=== PATIENT | male | born 2000 | race Caucasian/White ===

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

== ENCOUNTER 2018-05-26 04:23 | Inpatient (IN) | payer MEDICAID ==
[~2018-05-26] VITALS: Ht 167.6 cm; Wt 54.7 kg
[2018-05-26 04:27] VITALS: Ht 167.6 cm; Wt 54.7 kg
[2018-05-26 05:25] LABS: CALCIUM 8.6 mg/dL (8.5-10.1); CARBON DIOXIDE 29.7 mmol/L (21-32); CHLORIDE SERUM 100 mmol/L (98-107); CREATININE SERUM 0.8 mg/dL (0.7-1.3); GFR1 > 60 mL/min; GLUCOSE SERUM 143 mg/dL (74-106); POTASSIUM SERUM 3.7 mmol/L (3.5-5.1); SODIUM SERUM 136 mmol/L (136-145)
[2018-05-26 05:29] LABS: BASOPHIL % 0.3 % (0-2); PLATELET COUNT 298 x10^3mcL (130-400); RED CELL DISTRIBUTION WIDTH 12.7 % (11.5-14.5)
[2018-05-26 05:30] LABS: ALKALINE PHOSPHATASE 87 U/L (46-116); ALT/SGPT 16 U/L (16-63); AST/SGOT 14 U/L (15-37); BILIRUBIN TOTAL 0.67 mg/dL (0.20-1.00); TOTAL PROTEIN, SERUM 7.8 g/dL (6.4-8.2)
[2018-05-26 05:34] LABS: ALBUMIN 3.1 g/dL (3.4-5.0)
[2018-05-26 05:58] LABS: UA SPECIFIC GRAVITY >=1.030 (1.005-1.035); microscopic required? YES; urine erythrocyte NEGATIVE (NEGATIVE)
[2018-05-26 08:09] LABS: AMPHETAMINE QUAL UR POSITIVE (See below)
[2018-05-26 08:09] LABS: MAGNESIUM 1.7 mg/dL (1.8-2.4); PHOSPHOROUS 3.1 mg/dL (2.5-4.9)
[2018-05-26 08:11] LABS: CHOLESTEROL/HDL RATIO 2.5
[2018-05-26 12:33] VITALS: BP 144/57
[2018-05-26 19:00] VITALS: BP 111/54
[2018-05-26 21:23] VITALS: BP 109/60
[2018-05-27 05:31] VITALS: BP 99/51
[2018-05-27 07:36] LABS: CALCIUM 8.2 mg/dL (8.5-10.1); CARBON DIOXIDE 28.7 mmol/L (21-32); CHLORIDE SERUM 104 mmol/L (98-107); CREATININE SERUM 0.9 mg/dL (0.7-1.3); GFR1 > 60 mL/min; GLUCOSE SERUM 114 mg/dL (74-106); MAGNESIUM 1.9 mg/dL (1.8-2.4); PHOSPHOROUS 2.7 mg/dL (2.5-4.9); SODIUM SERUM 138 mmol/L (136-145)
[2018-05-27 07:59] LABS: BASOPHIL % 0.3 % (0-2); PLATELET COUNT 277 x10^3mcL (130-400); RED CELL DISTRIBUTION WIDTH 12.7 % (11.5-14.5)
[2018-05-27 08:58] VITALS: BP 113/69
[2018-05-27 21:26] VITALS: BP 118/61
[2018-05-27 22:22] VITALS: BP 114/72
[2018-05-27 22:57] VITALS: BP 121/63
[2018-05-28 00:03] VITALS: BP 126/69
[2018-05-28 05:13] VITALS: BP 97/53
[2018-05-28 07:12] LABS: PLATELET COUNT 299 x10^3mcL (130-400); RED CELL DISTRIBUTION WIDTH 12.3 % (11.5-14.5)
[2018-05-28 07:14] LABS: CALCIUM 8.5 mg/dL (8.5-10.1); CARBON DIOXIDE 29.6 mmol/L (21-32); CHLORIDE SERUM 104 mmol/L (98-107); CREATININE SERUM 0.8 mg/dL (0.7-1.3); GFR1 > 60 mL/min; GLUCOSE SERUM 121 mg/dL (74-106); MAGNESIUM 2.1 mg/dL (1.8-2.4); PHOSPHOROUS 4.2 mg/dL (2.5-4.9); POTASSIUM SERUM 4.3 mmol/L (3.5-5.1); SODIUM SERUM 138 mmol/L (136-145)
[2018-05-28 08:58] LABS: BAND NEUTROPHIL 4 % (0-10); MONOCYTE 2 % (0-7); SEGMENTED NEUTROPHILS 91 % (37-75)
[2018-05-28 08:59] LABS: rbc morphology (normal/abnorm) NORMAL (NORMAL)
[2018-05-28 10:30] VITALS: BP 109/56
== END 2018-05-28 15:03 | disposition left against medical advice (07) | DRG 710 ==
LOC: ED 04:23 → DU 06:17 → MU 06:17
PROVIDERS: Emergency Medicine; Surgery; ADMIT Internal Medicine
PROC: 0J9C0ZZ Drainage of Pelvic Region Subcutaneous Tissue and Fascia, Open Approach (ICD-10-PCS; principal; 2018-05-26 07:30)
DX: A41.9 Sepsis, unspecified organism (principal); N17.0 Acute kidney failure with tubular necrosis; L02.211 Cutaneous abscess of abdominal wall; L03.314 Cellulitis of groin; E44.1 Mild protein-calorie malnutrition; Q76.1 Klippel-Feil syndrome; E83.42 Hypomagnesemia
CPT/HCPCS: 83880; J0295; J0690; J0696; J1170; J1885; J2001; J2060; J2405; J3010; J3370; J3490; J7030; Q0092; Q9967

== ENCOUNTER 2018-05-28 17:46 | Emergency (ER) | payer MEDICAID ==
[~2018-05-28] VITALS: Ht 167.6 cm; Wt 62.1 kg
[2018-05-28 18:10] VITALS: BP 132/72; Ht 167.6 cm; Wt 62.1 kg
== END 2018-05-28 19:57 | disposition left against medical advice (07) ==
LOC: ED 17:46
DX: Z53.21 Procedure and treatment not carried out due to patient leaving prior to being seen by health care provider (principal)

== ENCOUNTER 2018-06-01 02:30 | Emergency (ER) | payer MEDICAID ==
[~2018-06-01] VITALS: Ht 165.1 cm; Wt 59.9 kg
[2018-06-01 02:37] VITALS: BP 119/72; Ht 165.1 cm; Wt 59.9 kg
== END 2018-06-01 03:50 | disposition home or self-care (01) ==
LOC: ED 02:30
DX: T81.33XA Disruption of traumatic injury wound repair, initial encounter (principal); X58.XXXA Exposure to other specified factors, initial encounter; Y93.89 Activity, other specified; Y92.89 Other specified places as the place of occurrence of the external cause; Y99.8 Other external cause status

== ENCOUNTER 2018-06-06 11:05 | Emergency (ER) | payer MEDICAID ==
[~2018-06-06] VITALS: Ht 165.1 cm; Wt 59.9 kg
[2018-06-06 11:32] VITALS: BP 112/63
== END 2018-06-06 13:55 | disposition home or self-care (01) ==
LOC: ED 11:05
DX: L02.214 Cutaneous abscess of groin (principal); L73.9 Follicular disorder, unspecified

== ENCOUNTER 2018-06-20 09:46 | Emergency (ER) | payer MEDICAID ==
[~2018-06-20] VITALS: Ht 165.1 cm; Wt 58.1 kg
[2018-06-20 09:49] VITALS: Ht 165.1 cm; Wt 58.1 kg
[2018-06-20 11:02] VITALS: BP 125/71
== END 2018-06-20 11:02 | disposition home or self-care (01) ==
LOC: ED 09:46
DX: Z48.01 Encounter for change or removal of surgical wound dressing (principal); A56.8 Sexually transmitted chlamydial infection of other sites; Z98.890 Other specified postprocedural states
CPT/HCPCS: J0696

== ENCOUNTER 2018-08-27 17:56 | Emergency (ER) | payer OTHER ==
[~2018-08-27] VITALS: Ht 160 cm; Wt 59.9 kg
[2018-08-27 18:21] VITALS: Ht 160 cm; Wt 59.9 kg
[2018-08-27 19:57] VITALS: BP 138/87
== END 2018-08-27 19:57 | disposition home or self-care (01) ==
LOC: ED 17:56
DX: H60.92 Unspecified otitis externa, left ear (principal); F17.210 Nicotine dependence, cigarettes, uncomplicated
CPT/HCPCS: J1885